=== PATIENT | female | born 1995 | race Caucasian/White ===

== ENCOUNTER 2017-05-15 19:57 | Emergency (ER) | payer OTHER ==
[~2017-05-15] VITALS: Ht 170.2 cm; Wt 63.5 kg
[2017-05-15 20:00] VITALS: BP 140/95; PULSE 66; TEMP 98.1
[2017-05-15] MEDS ORDERED: ORTHO TRI-CYCLE1 TAB PO (20:03)
== END 2017-05-15 21:14 | disposition left against medical advice (07) ==
LOC: COL.ER 19:57
DX: S61.213A Laceration without foreign body of left middle finger without damage to nail, initial encounter (principal); W26.0XXA Contact with knife, initial encounter

== ENCOUNTER 2017-05-16 08:55 | Emergency (ER) | payer OTHER ==
[~2017-05-16] VITALS: Ht 170.2 cm; Wt 63.6 kg
[~2017-05-16 08:55] MED LIST: ORTHO TRI-CYCLE1 TAB PO
[2017-05-16 09:19] VITALS: BP 116/73; PULSE 68; TEMP 98.3
== END 2017-05-16 10:26 | disposition home or self-care (01) ==
LOC: COL.ER 08:55
DX: S61.213A Laceration without foreign body of left middle finger without damage to nail, initial encounter (principal); W26.0XXA Contact with knife, initial encounter